=== PATIENT | male | born 1975 | race Caucasian/White ===

== ENCOUNTER 2023-06-17 22:30 | Emergency (ER) | payer OTHER ==
[2023-06-17 22:49] VITALS: BP 139/85; PULSE 72; RESP 18; TEMP 98; BMI 30.4
[2023-06-17] MEDS ORDERED: LIDOCAINE 5% TOPICAL PATCH TP ONE (23:21)
[2023-06-17] MEDS ORDERED: ACETAMINOPHEN 500 MG TABLET (FP) PO ONE (23:51)
[2023-06-18] MEDS ORDERED: ACETAMINOPHEN 325 MG TABLET (FP) ONE (00:12)
[2023-06-18] MEDS ORDERED: LIDOCAINE PATCH REMOVAL MC ONE (12:00)
== END 2023-06-18 01:09 | disposition home or self-care (01) ==
LOC: JER 22:30
DX: M25.562 Pain in left knee (principal); S86.912A Strain of unspecified muscle(s) and tendon(s) at lower leg level, left leg, initial encounter; W19.XXXA Unspecified fall, initial encounter
CPT/HCPCS: 73562-TC-LT-FY; 99283-25